=== PATIENT | male | born 1965 | race Caucasian/White ===

== ENCOUNTER 2017-02-19 02:00 | Inpatient (IN) | payer OTHER ==
[~2017-02-19] VITALS: Ht 177.8 cm; Wt 68.5 kg
--- NOTE | ~2017-02-19 | PA ---
Unit #: [id number] #: [id number] Patient: ROSEMARY COLIN [id number] [place] [address] [id number] I MR#: [id number] NAME: ROSEMARY COLIN ROOM: P106 Age: 51 Sex: M Admission Date: 02/19/2017 : 1965 Date of Assessment: 02/20/2017 Attending Physician: Nasir Nevarez M.D. Admitting Physician: Nasir Nevarez M.D. Primary Care Physician: Generic Doctor Not In System PSYCHIATRIC ASSESSMENT DATE OF SERVICE 02/20/2017 INFORMANTS The patient, reliable; OLOP, reliable. CHIEF COMPLAINT Depression. HISTORY OF PRESENT ILLNESS Rosemary is a 51-year-old man with a history of psychotic depression and chemical dependence. He presented to our assessment center in an extremely agitated state and while there, he stabbed himself with a pencil that went deep enough that he had to be sent to the emergency room for treatment. He was placed on a 72-hour hold and admitted for stabilization. PAST PSYCHIATRIC HISTORY Last admission was in 03/2016. He has been noncompliant with medications for much of the time since discharge. FAMILY PSYCHIATRIC HISTORY The patient's grandmother was an alcoholic. SOCIAL HISTORY The patient denied a history of childhood abuse or neglect. He is a single heterosexual man with minimal psychosocial support and is on long-term disability. PAST MEDICAL HISTORY Recent self-inflicted wound, but no chronic medical problems. MEDICATIONS Please see MAR. ALLERGIES No known medication allergies. SUBSTANCE ABUSE HISTORY The patient has a history of alcohol dependence. MENTAL STATUS EXAMINATION Rosemary presented as a disheveled man, appearing older than his stated age. His speech was sparse, but easily understood. Musculoskeletal examination Unit #: [id number] #: [id number] Patient: ROSEMARY COLIN demonstrated agitation. His mood was depressed and irritable with a congruent affect. He was alert and fully oriented. Memory and concentration were fair. Thought processes were concrete and there was a sense of paranoia and reports of auditory hallucinations with command suicidal content. He had multiple suicide plans and could not contract for safety. Insight and judgment, fair. Fund of knowledge and abstraction, fair. ASSETS AND LIABILITIES The patient has a history of treatment response. Liabilities include noncompliance. ADMITTING DIAGNOSES AXIS I: Major depression with psychotic features, history of alcohol dependence. AXIS II: Antisocial and borderline traits noted. AXIS III: Recent self-inflicted lacerations. AXIS IV: AXIS V: PSYCHIATRIC PLAN Rosemary was readmitted and placed on suicide precautions and a room lockout for self-harm. We will initiate Remeron 30 mg at bedtime for depression and continue cephalexin as recommended by the emergency room for his self-inflicted injury. Vistaril also provided as needed for agitation. He will enroll in dual diagnosis groups and activities. TREATMENT GOALS Resolution of SI, improvement in insight, and improvement in coping skills. DISCHARGE PLANNING Follow up with [facility]. ESTIMATED LENGTH OF STAY 5 days. Dictated by... Nasir Nevarez M.D. BEATA/cathleen TD: 02/25/2017 16:35 JOB #: [id number] PSYCHIATRIC ASSESSMENT Page 1 of 1 X Nasir Nevarez MD X PSYCHIATRIC ASSESSMENT
--- NOTE | ~2017-02-19 | CO ---
Unit #: [id number] #: [id number] Patient: ROSEMARY COLIN [id number] [place] [address] [id number] I MR#: [id number] NAME: ROSEMARY COLIN ROOM: [facility] Age: 51 Sex: M Admission Date: 02/19/2017 : 1965 Attending Physician: Nasir Nevarez M.D. Primary Care Physician: Generic Doctor Not In System Consultation Date: 02/19/2017 CONSULTATION REPORT Rosemary is a 51 year old who was self-harming prior to admission. This area was examined and addressed under his admission H and P. Please see H and P dated 02/19/17. Dictated by... Laura Roblero P.A.-C. for Last Ruelas/abdullahi TD: 02/20/2017 19:33 JOB #: [id number] CONSULTATION REPORT Page 1 of 1 X Laura Roblero CONSULTATION REPORT
--- NOTE | ~2017-02-19 | HP ---
Unit #: [id number] #: [id number] Patient: ROSEMARY COLIN [id number] [place] [address] [id number] I MR#: [id number] NAME: ROSEMARY COLIN ROOM: P106 Age: 51 Sex: M Admission Date: 02/19/2017 : 1965 Attending Physician: Nasir Nevarez M.D. Admitting Physician: Nasir Nevarez M.D. Primary Care Physician: Generic Doctor Not In System HISTORY AND PHYSICAL HISTORY OF PRESENT ILLNESS Rosemary is a 51 year old admitted to [address] [place] [address] with depression and verbalizing wanting to hurt himself. He actually was self-harming himself while in the intake department. He has had other admissions to this facility. PAST MEDICAL HISTORY 1. Long history of alcohol abuse. 2. High blood pressure. 3. History of self-harming. PAST SURGICAL HISTORY Bilateral ankles. ALLERGIES No known drug allergies. SOCIAL HISTORY He does not smoke. Has a long history of alcohol abuse but continues his sobriety. FAMILY HISTORY Medically noncontributory. REVIEW OF SYSTEMS CONSTITUTIONAL: No fever or chills. HEENT: Denies any sore throat, ear pain or runny nose. CARDIOVASCULAR: Denies chest pain, irregular heart rhythm or palpitations. CHEST: Denies shortness of breath or cough. No hemoptysis. GASTROINTESTINAL: Denies nausea, vomiting, diarrhea or chronic constipation. ENDOCRINE: Denies history of increased thirst or urination. No recent significant weight loss or gain. GENITOURINARY: Denies dysuria, frequency, or hematuria. SKIN: Denies any rashes. HEMATOLOGIC: Denies history of increased bleeding or bruising. MUSCULOSKELETAL: Denies any hot, swollen joints. No generalized muscle pain. NEUROLOGIC: Denies problems with vision or speech. No frequent, severe headaches. No numbness, tingling or weakness in any extremities. Denies loss of bladder or bowel control. CURRENT MEDICATIONS 1. Remeron 30 mg q.h.s. Unit #: [id number] #: [id number] Patient: ROSEMARY COLIN 2. Vistaril 50 mg q. 6 hours p.r.n. 3. Milk of Magnesia p.r.n. 4. Maalox p.r.n. 5. Tylenol p.r.n. 6. Nicotine patch 14 mg daily. PHYSICAL EXAMINATION GENERAL: Alert, well-nourished, in no apparent distress. VITAL SIGNS: Blood pressure 114/74, heart rate 80, respirations 16, temperature 98.6. WEIGHT: 151. HEIGHT: 5 feet 10 inches. SKIN: Warm and dry without rash. He has approximately inch long laceration to the anterior surface of his right forearm. The area is closed and has started to scab over. There is some minimal redness in the surrounding tissue. No pus is noted. HEENT: Normocephalic. TMs not viewed. Oral and nasal passages clear. Conjunctivae clear. PERRLA. EOMs intact. NECK: Supple without lymphadenopathy or thyromegaly. HEART: Regular rate and rhythm without murmur. LUNGS: Clear. ABDOMEN: Soft, nontender. : Not done. EXTREMITIES: No evidence of cyanosis, clubbing or edema. Moves all without focal deficit. NEUROLOGICAL: Grossly within normal limits. Cranial Nerves: II: Visual flanagan are intact. III, IV AND : Extraocular movements are intact. Pupils are equal, round and reactive to light. V: Facial sensation is grossly normal. VII: Facial movements and expression are normal. VIII: Auditory acuity grossly intact. IX, X: Uvula is midline. Phonation is normal. XI: Patient shrugs shoulders and turns head normally. XII: Tongue protrudes in the midline. Sensory and Motor Function: Sensory and motor sensation is grossly normal. Motor: moves all extremities well. Coordination: Gait is normal. Deep Tendon Reflexes: Intact. IMPRESSION 1. Psychiatric admission. 2. Self-inflicted laceration sustained prior to admission. RECOMMENDATIONS PSYCHIATRIC: Per psychiatrist. MEDICAL: 1. See no contraindication to participate in facility's activities. 2. Keep the wound clean with soap and water. Start Keflex 500 mg 1 p.o. t.i.d. x7 days. MEDICAL PROGNOSIS Good. MEDICAL CONDITION Stable. Unit #: [id number] #: [id number] Patient: ROSEMARY COLIN Dictated by... Laura Roblero P.A.-C. for Last RuelasJA/abdullahi TD: 02/20/2017 16:26 JOB #: [id number] HISTORY AND PHYSICAL Page 1 of 1 X Laura Roblero HISTORY AND PHYSICAL
--- NOTE | ~2017-02-19 | PN ---
Unit #: [id number] #: [id number] Patient: ROSEMARY COLIN [id number] [facility] [address] [place] [address] [id number] I MR#: [id number] NAME: ROSEMARY COLIN ROOM: [facility] Age: 51 Sex: M Admission Date: 02/19/2017 : 1965 Attending Physician: Nasir Nevarez M.D. Admitting Physician: Nasir Nevarez M.D. Primary Care Physician: Generic Doctor Not In System [facility] PROGRESS NOTES DATE 02/20/2017 DISCUSSION This patient was seen and evaluated on February 20, 2017. He continues to detox from alcohol. The patient is attending groups and unit activities. He reports feeling a bit shaky today but no other withdrawal symptoms. His appetite and sleep are adequate at this time. He is encouraged to attend groups and unit activities. He will continue inpatient hospitalization for alcohol detox. Dictated by... Francesco Ramos/sujey TD: 02/24/2017 00:34 JOB #: [id number] [facility] PROGRESS NOTES Page 1 of 1 X Isabel Bowden PROGRESS NOTE
[2017-02-20 11:27] LABS: BASOPHIL# 0.1 X10e3 (0-0.3); BASOPHIL% 0.9 % (0-2.5); EOSINOPHIL# 0.2 X10e3 (0-0.7); EOSINOPHIL% 2.3 % (0.0-7.0); HEMATOCRIT 43.7 % (38.0-50.0); HEMOGLOBIN 14.4 gm/dL (13.0-16.0); LYMPHOCYTE# 1.5 X10e3 (1.0-3.5); LYMPHOCYTE% 15.2 % (17.0-45.0); MEAN CELL VOLUME 87.3 FL (83-96); MEAN CORPUSCULAR HEMOGLOBIN 28.7 PG (28-34); MEAN CORPUSCULAR HGB CONC 32.9 g/dL (30-36); MEAN PLATELET VOLUME 8.4 FL (6.5-11.5); MONOCYTE# 0.5 X10e3 (0-1.0); MONOCYTE% 5.5 % (3.0-12.0); NEUTROPHIL# 7.5 X10e3 (1.5-7.1); NEUTROPHIL% 76.1 % (40-75); PLATELET COUNT 310 X10e3 (140-420); RED BLOOD COUNT 5.01 X10e (3.90-5.60); RED CELL DISTRIBUTION WIDTH 13.6 % (11.0-15.5); WHITE BLOOD COUNT 9.8 X10e3 (4.0-10.5)
[2017-02-20 11:29] LABS: DIFF IND NO
[2017-02-20 11:48] LABS: ALBUMIN SERUM 3.9 g/dL (3.5-5.0); BILIRUBIN,TOTAL 0.6 mg/dL (0.2-2.0); BUN/CREATININE RATIO 15.55; CALCIUM SERUM 9.4 mg/dL (8.4-10.2); CREATININE SERUM 0.9 mg/dL (0.6-1.4); GLOM FILT RATE Estimated 98.5 mL/min (>60); PROTEIN TOTAL SERUM 6.8 g/dL (6.0-8.3)
[2017-02-24 09:40] LABS: URINE APPEARANCE CLEAR; URINE BILIRUBIN NEG (NEG); URINE BLOOD NEG (NEG); URINE COLOR YELLOW; URINE GLUCOSE NEG (NEG); URINE KETONE NEG (NEG); URINE LEUKOCYTE ESTERASE NEG (NEG); URINE NITRATE NEG (NEG); URINE PH 6.5 (5-8); URINE PROTEIN NEG (NEG); URINE UROBILINOGEN 0.2 MG/DL (NEG)
[2017-02-24 10:16] LABS: AMPHETAMINE NEG (NEG); BARBITURATES NEG (NEG); BENZODIAZEPINES NEG (NEG); COCAINE NEG (NEG); MARIJUANA NEG (NEG); OPIATES NEG (NEG); TRICYCLIC ANTIDEPRESSANTS NEG (NEG); U METHADONE NEG (NEG)
== END 2017-03-04 13:55 | disposition home or self-care (01) | DRG 885 ==
LOC: P1S 02:00
PROVIDERS: Psychiatry & Neurology Psychiatry
PROC: HZ2ZZZZ Detoxification Services for Substance Abuse Treatment (ICD-10-PCS; principal; 2017-02-19)
DX: F32.3 Major depressive disorder, single episode, severe with psychotic features (principal); R45.851 Suicidal ideations; Z91.19 Patient's noncompliance with other medical treatment and regimen; F60.2 Antisocial personality disorder; T14.8 Other injury of unspecified body region; Y33.XXXD Other specified events, undetermined intent, subsequent encounter; Y92.9 Unspecified place or not applicable; F10.20 Alcohol dependence, uncomplicated; F60.3 Borderline personality disorder
CPT/HCPCS: 80053; 80307; 81003; 85025

== ENCOUNTER 2017-04-14 16:45 | Inpatient (IN) | payer OTHER ==
[~2017-04-14] VITALS: Ht 177.8 cm; Wt 68.0 kg
--- NOTE | ~2017-04-14 | HP ---
Unit #: [id number] #: [id number] Patient: ROSEMARY COLIN [id number] [place] [address] [id number] I MR#: [id number] NAME: ROSEMARY COLIN ROOM: P263 Age: 51 Sex: M Admission Date: 04/14/2017 : 1965 Attending Physician: Nasir Nevarez M.D. Admitting Physician: Nasir Nevarez M.D. Primary Care Physician: Generic Doctor Not In System HISTORY AND PHYSICAL HISTORY OF PRESENT ILLNESS Rosemary is a 51-year-old admitted to [address] [place] [address] with depression and verbalizing wanting to hurt himself. He has had other admissions to this facility for the same. PAST MEDICAL HISTORY 1. Long history of alcohol abuse. 2. High blood pressure. 3. History of self-harming, nothing new at the time of this admission. PAST SURGICAL HISTORY Bilateral ankles. ALLERGIES No known drug allergies. SOCIAL HISTORY He does not smoke. Has a history of alcohol abuse, but denies anything currently. FAMILY HISTORY Medically noncontributory. REVIEW OF SYSTEMS CONSTITUTIONAL: No fever or chills. HEENT: Denies any sore throat, ear pain or runny nose. CARDIOVASCULAR: Denies chest pain, irregular heart rhythm or palpitations. CHEST: Denies shortness of breath or cough. No hemoptysis. GASTROINTESTINAL: Denies nausea, vomiting, diarrhea or chronic constipation. ENDOCRINE: Denies history of increased thirst or urination. No recent significant weight loss or gain. GENITOURINARY: Denies dysuria, frequency, or hematuria. SKIN: Denies any rashes. HEMATOLOGIC: Denies history of increased bleeding or bruising. MUSCULOSKELETAL: Denies any hot, swollen joints. No generalized muscle pain. NEUROLOGIC: Denies problems with vision or speech. No frequent, severe headaches. No numbness, tingling or weakness in any extremities. Denies loss of bladder or bowel control. CURRENT MEDICATIONS 1. Celexa 40 mg q. day. Unit #: [id number] #: [id number] Patient: ROSEMARY COLIN 2. Desyrel 50 mg q.h.s. p.r.n. 3. Protonix 40 mg q. day. 4. Effexor XR 225 mg q. day. 5. Milk of Magnesia p.r.n. 6. Maalox p.r.n. 7. Tylenol p.r.n. 8. Nicotine patch 14 mg q. day. PHYSICAL EXAMINATION GENERAL: Alert, thin. No apparent distress. VITAL SIGNS: Blood pressure 112/68, heart rate 62, respirations 16, and temperature 98.6. WEIGHT: 150. HEIGHT: 5 feet 10 inches. SKIN: Warm and dry without rash or lesion. HEENT: Normocephalic. TMs not viewed. Oral and nasal passages clear. Conjunctivae clear. PERRLA. EOMs intact. NECK: Supple without lymphadenopathy or thyromegaly. HEART: Regular rate and rhythm without murmur. LUNGS: Clear. ABDOMEN: Soft, nontender. : Not done. EXTREMITIES: No evidence of cyanosis, clubbing or edema. Moves all without focal deficit. NEUROLOGICAL: Grossly within normal limits. Cranial Nerves: II: Visual flanagan are intact. III, IV AND : Extraocular movements are intact. Pupils are equal, round and reactive to light. V: Facial sensation is grossly normal. VII: Facial movements and expression are normal. VIII: Auditory acuity grossly intact. IX, X: Uvula is midline. Phonation is normal. XI: Patient shrugs shoulders and turns head normally. XII: Tongue protrudes in the midline. Sensory and Motor Function: Sensory and motor sensation is grossly normal. Motor: moves all extremities well. Coordination: Gait is normal. Deep Tendon Reflexes: Intact. IMPRESSION Psychiatric admission. RECOMMENDATIONS PSYCHIATRIC: Per psychiatrist. MEDICAL: I see no contraindications to participate in this facility's activities. MEDICAL PROGNOSIS Good. MEDICAL CONDITION Stable. Dictated by... Laura Roblero P.A.-C. for Nelly Hanley M.D. Unit #: [id number] #: [id number] Patient: ROSEMARY COLIN OLIMPIA/rachel TD: 04/15/2017 15:11 JOB #: [id number] HISTORY AND PHYSICAL Page 1 of 1 X Laura Roblero X HISTORY AND PHYSICAL
--- NOTE | ~2017-04-14 | PN ---
Unit #: [id number] #: [id number] Patient: ROSEMARY COLIN [id number] [facility] [address] [place] [address] [id number] I MR#: [id number] NAME: ROSEMARY COLIN ROOM: 63 Age: 51 Sex: M Admission Date: 04/14/2017 : 1965 Attending Physician: Nasir Nevarez M.D. Admitting Physician: Nasir Nevarez M.D. Primary Care Physician: Generic Doctor Not In System [facility] PROGRESS NOTES DATE 04/16/2017 DISCUSSION Rosemary continues to be depressed and downcast with a congruent affect. He is alert and fully oriented with no psychosis and ongoing suicidal ideation with a plan to cut his wrist. He is compliant with medications with no adverse side effects. ASSESSMENT 1. Major depression. 2. Alcohol dependence. PLAN Continue current treatment plan. Dictated by... Last CatH/bzg TD: 04/24/2017 11:05 JOB #: [id number] [facility] PROGRESS NOTES Page 1 of 1 X Nasir Nevarez MD X PROGRESS NOTE
--- NOTE | ~2017-04-14 | PN ---
Unit #: [id number] #: [id number] Patient: ROSEMARY COLIN [id number] [facility] [address] [place] [address] [id number] I MR#: [id number] NAME: ROSEMARY COLIN ROOM: 63 Age: 51 Sex: M Admission Date: 04/14/2017 : 1965 Attending Physician: Nasir Nevarez M.D. Admitting Physician: Nasir Nevarez M.D. Primary Care Physician: Generic Doctor Not In System [facility] PROGRESS NOTES DATE 04/22/2017 DISCUSSION Rosemary continues to show some improvement today. His dress and grooming are slightly better. He is alert and fully oriented. Memory and concentration are [id number] and his thought processes are logical with no psychosis. He discusses his concerns about a relapse onto alcohol after leaving the hospital, and would like to restart on Antabuse as he states this has been effective in the past. ASSESSMENT Major depression, alcohol dependence. PLAN We will start Antabuse 250 mg at bedtime tonight and anticipate discharge in the near future. Dictated by... Nasir Nevarez M.D. BEATA/hilario TD: 04/23/2017 11:21 JOB #: [id number] [facility] PROGRESS NOTES Page 1 of 1 X Nasir Nevarez MD PROGRESS NOTE
--- NOTE | ~2017-04-14 | PN ---
Unit #: [id number] #: [id number] Patient: ROSEMARY COLIN [id number] [facility] [address] [place] [address] [id number] I MR#: [id number] NAME: ROSEMARY COLIN ROOM: P263 Age: 51 Sex: M Admission Date: 04/14/2017 : 1965 Attending Physician: Nasir Nevarez M.D. Admitting Physician: Nasir Nevarez M.D. Primary Care Physician: Generic Doctor Not In System [facility] PROGRESS NOTES DATE 04/21/2017 DISCUSSION Rosemary continues to e disheveled in appearance and downcast in affect. His mood is depressed with a congruent affect. He is alert and fully oriented with no psychosis but ongoing reports of suicidal ideation. He is participating appropriately in unit groups and activities. ASSESSMENT Major depression, history of alcohol dependence. PLAN We will continue current treatment plans and precautions. Dictated by... Last Cat/hilario TD: 04/23/2017 12:04 JOB #: [id number] [facility] PROGRESS NOTES Page 1 of 1 X Nasir Nevarez MD PROGRESS NOTE
--- NOTE | ~2017-04-14 | PN ---
Unit #: [id number] #: [id number] Patient: ROSEMARY COLIN [id number] [facility] [address] [place] [address] [id number] I MR#: [id number] NAME: ROSEMARY COLIN ROOM: P263 Age: 51 Sex: M Admission Date: 04/14/2017 : 1965 Attending Physician: Nasir Nevarez M.D. Admitting Physician: Nasir Nevarez M.D. Primary Care Physician: Generic Doctor Not In System [facility] PROGRESS NOTES DATE 04/20/2017 DISCUSSION Rosemary continues to report suicidal ideation but appears better. He is participating in a few groups and activities now, although his dress and grooming remain somewhat disheveled. He is alert and fully oriented with no active psychosis but continues to report suicidal ideation. ASSESSMENT 1. Major depression. 2. Alcohol dependence. PLAN Continue current treatment plans. Dictated by... Nasir Nevarez M.D. BEATA/rayh TD: 04/24/2017 17:27 JOB #: [id number] [facility] PROGRESS NOTES Page 1 of 1 X Nasir Nevarez MD X PROGRESS NOTE
--- NOTE | ~2017-04-14 | PN ---
Unit #: [id number] #: [id number] Patient: ROSEMARY COLIN [id number] [facility] [address] [place] [address] [id number] I MR#: [id number] NAME: ROSEMARY COLIN ROOM: 63 Age: 51 Sex: M Admission Date: 04/14/2017 : 1965 Attending Physician: Nasir Nevarez M.D. Admitting Physician: Nasir Nevarez M.D. Primary Care Physician: Generic Doctor Not In System [facility] PROGRESS NOTES DATE 04/18/2017 DISCUSSION Rosemary remains compliant with medications and has no adverse side effects today. He is alert and fully oriented. Memory and concentration were fair. Thought processes were goal directed with no psychosis. He does continues to report suicidal ideation. ASSESSMENT Major depression. PLAN Continue current treatment plan. Dictated by... Nasir Nevarez M.D. MRH/bzg TD: 04/24/2017 11:23 JOB #: [id number] [facility] PROGRESS NOTES Page 1 of 1 X Nasir Nevarez MD X PROGRESS NOTE
--- NOTE | ~2017-04-14 | PN ---
Unit #: [id number] #: [id number] Patient: ROSEMARY COLIN [id number] [facility] [address] [place] [address] [id number] I MR#: [id number] NAME: ROSEMARY COLIN ROOM: 63 Age: 51 Sex: M Admission Date: 04/14/2017 : 1965 Attending Physician: Nasir Nevarez M.D. Admitting Physician: Nasir Nevarez M.D. Primary Care Physician: Generic Doctor Not In System [facility] PROGRESS NOTES DATE 04/19/2017 DISCUSSION Rosemary continues to be depressed, but his affect is a little brighter today. He is participating appropriately with unit groups and activities and is compliant with medications. He is alert and fully oriented with no psychosis but ongoing suicidal ideation with a plan to cut himself. ASSESSMENT 1. Major depression. 2. Alcohol dependence. PLAN Continue current treatment plan. Dictated by... Nasir Nevarez M.D. MRH/bzg TD: 04/24/2017 11:48 JOB #: [id number] [facility] PROGRESS NOTES Page 1 of 1 X Nasir Nevarez MD PROGRESS NOTE
--- NOTE | ~2017-04-14 | PN ---
Unit #: [id number] #: [id number] Patient: ROSEMARY POLANCO [id number] [facility] [address] [place] [address] [id number] I MR#: [id number] NAME: ROSEMARY POLANCO ROOM: P263 Age: 51 Sex: M Admission Date: 04/14/2017 : 1965 Attending Physician: Nasir Nevarez M.D. Admitting Physician: Nasir Nevarez M.D. Primary Care Physician: Generic Doctor Not In System [facility] PROGRESS NOTES DATE OF SERVICE: 04/17/2017 This patient was seen and assessed on 04/17/2017. SUBJECTIVE Upon today's assessment, Mr. Polanco was found sitting in the day room, appearing in no apparent discomfort. He stated today that today was "slightly better" and "I'm not as suicidal as yesterday." He stated that he was still having intermittent fleeting thoughts of suicidal ideation, but no specific plan. He reports that he slept better and that he had no issues with his appetite. PLAN We will continue to monitor Mr. Polanco q.15 minutes for safety as well as suicidal ideation. Dictated by... Kaylah Sorensen APRN for Last Cat/cathleen TD: 04/21/2017 05:04 JOB #: [id number] [facility] PROGRESS NOTES Page 1 of 1 X KAYLAH SORENSEN PROGRESS NOTE
--- NOTE | ~2017-04-14 | PA ---
Unit #: [id number] #: [id number] Patient: ROSEMARY COLIN [id number] [place] [address] [id number] I MR#: [id number] NAME: ROSEMARY COLIN ROOM: P263 Age: 51 Sex: M Admission Date: 04/14/2017 : 1965 Date of Assessment: Attending Physician: Nasir Nevarez M.D. Admitting Physician: Nasir Nevarez M.D. Primary Care Physician: Generic Doctor Not In System PSYCHIATRIC ASSESSMENT DATE OF SERVICE 04/15/2017. INFORMANTS The patient, reliable and OLOP, reliable. CHIEF COMPLAINT Suicidal ideation. HISTORY OF PRESENT ILLNESS Rosemary is a 51-year-old man with a history of psychotic depression and chemical dependence. The patient was recently at this hospital, but he returns reporting increasing hopelessness and helplessness despite compliance with medication. He also admitted to brief relapse on alcohol, but no active withdrawal symptoms. He was admitted for stabilization. PAST PSYCHIATRIC HISTORY Please see previous assessments for details. The patient has been erratically compliant with medications since discharge. FAMILY PSYCHIATRIC HISTORY The patient's grandmother was an alcoholic. SOCIAL HISTORY The patient denied any history of childhood abuse or neglect. He is a single heterosexual man with minimal psychosocial support. He is on long-term disability and does not work otherwise. PAST MEDICAL HISTORY No chronic medical problems. MEDICATIONS None. ALLERGIES No known medication allergies. SUBSTANCE ABUSE HISTORY Significant for alcohol dependence. MENTAL STATUS EXAMINATION Rosemary presented as an older appearing disheveled man, appearing older than his stated age. His appearance was quite disheveled. Musculoskeletal Unit #: [id number] #: [id number] Patient: ROSEMARY COLIN examination was calm. His mood was depressed and irritable with a congruent affect. He was alert and fully oriented. Memory and concentration were fair. Thought processes were logical with no active psychosis. He reported ongoing suicidal ideation with a plan to cut himself and could not contract for safety. Insight and judgment were fair. Fund of knowledge and abstraction were fair. ASSETS AND LIABILITIES The patient has a history of positive response to treatment and is voluntary for treatment. Liabilities include noncompliance and recent relapse. ADMITTING DIAGNOSES AXIS I: Major depression with psychotic features and alcohol dependence by history. AXIS II: Antisocial and borderline traits noted. AXIS III: None acute. AXIS IV: AXIS V: PSYCHIATRIC PLAN Rosemary was readmitted and placed on his previously effective medications. He will enroll in dual diagnosis groups and activities, and a physical examination and laboratory studies will be repeated. TREATMENT GOALS Resolution of suicidal ideation, improvement in insight, and improvement in coping skills. DISCHARGE PLANNING Follow up with [facility]. ESTIMATED LENGTH OF STAY 5 days. Dictated by... Nasir Nevarez M.D. BEATA/cathleen TD: 04/20/2017 19:53 JOB #: [id number] PSYCHIATRIC ASSESSMENT Page 1 of 1 X Nasir Nevarez MD X PSYCHIATRIC ASSESSMENT
--- NOTE | ~2017-04-14 | DS ---
Unit #: [id number] #: [id number] Patient: ROSEMARY COLIN [id number] [place] [address] [id number] MR#: [id number] NAME: ROSEMARY COLIN ROOM: 63 Age: 51 Sex: M Admission Date: 04/14/2017 : 1965 Discharge Date: 04/23/2017 Attending Physician: Nasir Nevarez M.D. Primary Care Physician: Generic Doctor Not In System DISCHARGE SUMMARY REASON FOR ADMISSION Rosemary is a 61-year-old man with a previous history of treatment here for depression and alcohol dependence. The patient came in reporting hopelessness, helplessness, despite compliance with medications and could not contract for safety outside of the hospital. He was admitted for stabilization. DIAGNOSTIC STUDIES LABORATORY DATA: Please see hospital chart. HOSPITAL COURSE Rosemary was admitted and placed on suicide precaution. His home medications were restarted and he enrolled in psychotherapy groups and activities. Her tolerated the inpatient milieu with no significant problems and was seen on a daily basis for suicidal ideation, which gradually resolved. He expressed interest in beginning Antabuse prior to discharge, as he felt he would have a challenge maintaining sobriety outside of the hospital and Antabuse 250 mg at bedtime was initiated with good tolerance. He was able to contract for safety on the date of discharge with no evidence of suicidal ideation, intent or plan. DISCHARGE DIAGNOSES Gause I Major depression, alcohol dependence. Gause II No diagnosis. Gause III None acute. Gause IV Gause V PSYCHIATRIC INSTRUCTION TO PATIENT Followup with [facility] for medication management and psychotherapy. DISCHARGE MEDICATIONS 1. Celexa 40 mg daily for depression. 2. Effexor XR 225 mg daily for depression. 3. Trazodone 50 mg at bedtime as needed for insomnia. 4. Antabuse 250 mg at bedtime for alcohol dependence. CONDITION AT DISCHARGE Improved. PROGNOSIS Unit #: [id number] #: [id number] Patient: ROSEMARY COLIN Good. DIET AND ACTIVITY Per primary care doctor. Dictated by... Nasir Nevarez M.D. H/ts TD: 04/27/2017 08:33 JOB #: [id number] DISCHARGE SUMMARY Page 1 of 1 X Nasir Nevarez MD DISCHARGE SUMMARY
[2017-04-15 10:15] LABS: URINE APPEARANCE TURBID; URINE BILIRUBIN NEG (NEG); URINE BLOOD NEG (NEG); URINE COLOR YELLOW; URINE GLUCOSE NEG (NEG); URINE KETONE TRACE (NEG); URINE LEUKOCYTE ESTERASE NEG (NEG); URINE NITRATE NEG (NEG); URINE PROTEIN NEG (NEG); URINE SPECIFIC GRAVITY 1.028 (1.003-1.035)
[2017-04-15 11:13] LABS: AMPHETAMINE NEG (NEG); BARBITURATES NEG (NEG); BENZODIAZEPINES NEG (NEG); COCAINE NEG (NEG); MARIJUANA NEG (NEG); OPIATES NEG (NEG); TRICYCLIC ANTIDEPRESSANTS NEG (NEG); U METHADONE NEG (NEG)
[2017-04-15 12:54] LABS: BASOPHIL# 0.1 X10e3 (0-0.3); BASOPHIL% 1.9 % (0-2.5); EOSINOPHIL# 0.1 X10e3 (0-0.7); EOSINOPHIL% 2.3 % (0.0-7.0); HEMATOCRIT 41.1 % (38.0-50.0); HEMOGLOBIN 14.2 gm/dL (13.0-16.0); LYMPHOCYTE# 1.1 X10e3 (1.0-3.5); LYMPHOCYTE% 26.6 % (17.0-45.0); MEAN CELL VOLUME 86.9 FL (83-96); MEAN CORPUSCULAR HGB CONC 34.5 g/dL (30-36); MEAN PLATELET VOLUME 8.2 FL (6.5-11.5); MONOCYTE# 0.5 X10e3 (0-1.0); MONOCYTE% 12.8 % (3.0-12.0); NEUTROPHIL# 2.4 X10e3 (1.5-7.1); NEUTROPHIL% 56.4 % (40-75); PLATELET COUNT 254 X10e3 (140-420); RED BLOOD COUNT 4.73 X10e (3.90-5.60); RED CELL DISTRIBUTION WIDTH 13.8 % (11.0-15.5); WHITE BLOOD COUNT 4.2 X10e3 (4.0-10.5)
[2017-04-15 13:02] LABS: DIFF IND NO
[2017-04-15 13:05] LABS: ALBUMIN SERUM 4.1 g/dL (3.5-5.0); BUN/CREATININE RATIO 17.5; CALCIUM SERUM 9.1 mg/dL (8.4-10.2); CREATININE SERUM 0.8 mg/dL (0.6-1.4); GLOM FILT RATE Estimated 103.5 mL/min (>60); POTASSIUM 4.2 mmol/L (3.5-5.1); PROTEIN TOTAL SERUM 6.4 g/dL (6.0-8.3)
== END 2017-04-23 14:25 | disposition home or self-care (01) | DRG 885 ==
LOC: P2L 20:17
PROVIDERS: Psychiatry & Neurology Psychiatry
DX: F33.3 Major depressive disorder, recurrent, severe with psychotic symptoms (principal); R45.851 Suicidal ideations; F60.2 Antisocial personality disorder; F60.3 Borderline personality disorder; F10.20 Alcohol dependence, uncomplicated
CPT/HCPCS: 80053; 80307; 81003; 85025